=== PATIENT | female | born 1945 | race Caucasian/White ===

== ENCOUNTER 2022-03-14 13:36 | Outpatient (CLI) | payer OTHER, SELFPAY | END 2022-03-14 13:37 | disposition home or self-care (01) | LOC: ANHAUDIO 13:41 | DX: H90.3 Sensorineural hearing loss, bilateral (principal) | CPT/HCPCS: 92557; 92567 ==

== ENCOUNTER 2022-04-28 13:12 | Outpatient (RCR) | payer OTHER, SELFPAY | END 2022-04-28 23:59 | disposition home or self-care (01) | LOC: ANHAUDIO 13:12 | DX: Z46.1 Encounter for fitting and adjustment of hearing aid (principal) | CPT/HCPCS: V5160; V5260 ==